=== PATIENT | male | born 1940 | race Caucasian/White ===

== ENCOUNTER 2016-07-06 08:08 | Outpatient (CLI) | payer OTHER | END 2016-07-06 08:09 | disposition home or self-care (01) | DX: I65.21 Occlusion and stenosis of right carotid artery (principal); R51 Headache; M54.2 Cervicalgia; M47.812 Spondylosis without myelopathy or radiculopathy, cervical region; Z98.1 Arthrodesis status ==

== ENCOUNTER 2016-08-27 07:56 | Outpatient (CLI) | payer OTHER | END 2016-08-27 07:57 | disposition home or self-care (01) | DX: I71.4 Abdominal aortic aneurysm, without rupture (principal); F17.200 Nicotine dependence, unspecified, uncomplicated ==

== ENCOUNTER 2017-01-17 08:35 | Outpatient (CLI) | payer OTHER ==
[2017-01-17 18:57] LABS: BASOPHILS # (AUTO) 0.4 10^3/uL (0.0-0.1); BASOPHILS % (AUTO) 5.9 %; EOSINOPHILS # (AUTO) 0.2 10^3/uL (0.0-0.7); HCT - HEMATOCRIT 42.6 % (42.0-52.0); LYMPHOCYTES # (AUTO) 1.4 10^3/uL (1.5-3.5); LYMPHOCYTES % (AUTO) 20.2 %; MEAN CORPUSCULAR HEMOGLOBIN 31.9 pg (27.0-31.0); MEAN CORPUSCULAR VOLUME 96.7 fL (80.0-94.0); MEAN PLATELET VOLUME 7.9 fL (7.4-11.4); MONOCYTES # (AUTO) 0.6 10^3/uL (0.0-1.0); MONOCYTES % (AUTO) 8.5 %; NEUTROPHILS # (AUTO) 4.2 10^3/uL (1.5-6.6); NEUTROPHILS % (AUTO) 62.4 %; NUCLEATED RED BLOOD CELLS AUTO 0.2 /100WBC; RED CELL DISTRIBUTION WIDTH 13.4 % (12.0-15.0); UNCORRECTED WHITE BLOOD COUNT 6.7 x10^3/uL; WHITE BLOOD COUNT 6.7 x10^3/uL (4.8-10.8)
[2017-01-17 19:09] LABS: ALBUMIN/GLOBULIN RATIO 1.4 (1.0-2.2); BUN - BLOOD UREA NITROGEN 18 mg/dL (6-20); CALCIUM 9.1 mg/dL (8.5-10.3); CARBON DIOXIDE - CO2 26 mmol/L (21-32); CHLORIDE 101 mmol/L (101-111); CHOL/HDL RATIO 6.6 (<5.0); CHOLESTEROL 219 mg/dL; CREATININE 1.1 mg/dL (0.6-1.2); GFR - MDRD 65 (>89); GLUCOSE 117 mg/dL (70-100); HDL CHOLESTEROL 33 mg/dL; POTASSIUM 4.2 mmol/L (3.5-5.0); SODIUM 136 mmol/L (135-145); TOTAL PROTEIN 7.3 g/dL (6.7-8.2); TRIGLYCERIDES 731 mg/dL
[2017-01-17 20:40] LABS: LDL CHOLESTEROL,DIRECT 71 mg/dL
[2017-01-19 22:31] LABS: HEMOGLOBIN A1C 0.78 g/dL
== END 2017-01-17 08:36 | disposition home or self-care (01) ==
LOC: LAB.S 08:35
PROVIDERS: ATTEND Physician Assistant
DX: E78.5 Hyperlipidemia, unspecified (principal)
CPT/HCPCS: 36415; 80053; 80061; 83036; 85025

== ENCOUNTER 2017-02-19 07:48 | Outpatient (CLI) | payer OTHER | END 2017-02-19 07:49 | disposition home or self-care (01) | LOC: DI 07:48 | PROVIDERS: ATTEND Physician Assistant | DX: R07.9 Chest pain, unspecified (principal); R06.02 Shortness of breath; R68.84 Jaw pain; F17.200 Nicotine dependence, unspecified, uncomplicated | CPT/HCPCS: 93005; 93306 ==

== ENCOUNTER 2017-09-30 10:41 | Outpatient (CLI) | payer OTHER ==
--- NOTE | 2017-10-01 16:37 | Ultrasound Report ---
LIMITED RETROPERITONEAL ULTRASOUND: 09/30/2017 CLINICAL INDICATION: Followup aneurysm. COMPARISON: 08/27/2016 FINDINGS: The abdominal aorta measures 2.5 cm proximally, and 1.8 cm in the mid portion. Distal aneurysmal dilatation is now seen, measuring 3.9 x 3.9 cm. The iliacs are normal in caliber. No free fluid is present. 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 TD: 09/30/2017 19:37
== END 2017-09-30 10:42 | disposition home or self-care (01) ==
LOC: DI 10:41
PROVIDERS: ATTEND Physician Assistant
DX: I71.4 Abdominal aortic aneurysm, without rupture (principal)
CPT/HCPCS: 76775

== ENCOUNTER 2017-11-17 08:12 | Day surgery (SDC) | payer OTHER ==
[~2017-11-17 08:12] MED LIST: BRIMONIDINE 0.2% OPHTH DROPS 5 ML ONE; BSS/LIDOCAINE/EPINEPHRINE 1 ML SYRINGE ONE; CYCLOPENTOLATE 1% OPHTH DROPS 2 ML ONE; EPINEPHrine 1 MG/ML AMP ONE; KETOROLAC 0.45% OPHTH DROPS ONE; PHENYLEPHRINE 2.5% OPHTH 2 ML DROPS ONE; PROPARACAINE 0.5% OPHTH DROPS 15 ML ONE; TIMOLOL 0.5% OPHTH DROPS ONE; TRIAMCIN/MOXIFLOX OPHTHALMIC 0.6 ML VIAL IO ONE
[2017-11-17] MEDS ORDERED: LACTATED RINGERS 500 ML IV ONE (08:39)
[2017-11-17] MEDS ORDERED: CYCLOPENTOLATE 1% OPHTH DROPS 2 ML RIGHTEYE ONE (08:45)
[2017-11-17] MEDS ORDERED: KETOROLAC 0.45% OPHTH DROPS RIGHTEYE ONE (08:45)
[2017-11-17] MEDS ORDERED: PROPARACAINE 0.5% OPHTH DROPS 15 ML RIGHTEYE ONE ×2 (08:45→09:49)
[2017-11-17] MEDS ORDERED: PHENYLEPHRINE 2.5% OPHTH 2 ML DROPS RIGHTEYE ONE (08:45)
[2017-11-17] MEDS ORDERED: MIDAZOLAM 2 MG/2 ML VIAL IVP ONE (09:40)
[2017-11-17] MEDS ORDERED: VANCOMYCIN OPHTHALMI 8MG/0.8ML 8 MG/0.8 ML SYRINGE IO ONE (09:47)
[2017-11-17] MEDS ORDERED: BSS/LIDOCAINE/EPINEPHRINE 1 ML SYRINGE IO ONE (09:47)
[2017-11-17] MEDS ORDERED: CHONDR SULF/HYALURONATE SYRINGE IO ONE (09:48)
[2017-11-17] MEDS ORDERED: BRIMONIDINE 0.2% OPHTH DROPS 5 ML OPTH ONE (09:48)
[2017-11-17] MEDS ORDERED: EPINEPHrine 1 MG/ML AMP IR ONE (09:48)
[2017-11-17] MEDS ORDERED: TIMOLOL 0.5% OPHTH DROPS OPTH ONE (09:49)
[2017-11-17 10:20] VITALS: BP 134/70
== END 2017-11-17 08:13 | disposition home or self-care (01) ==
LOC: SDS 08:12
PROVIDERS: ATTEND Ophthalmology
PROC: 08RJ3JZ Replacement of Right Lens with Synthetic Substitute, Percutaneous Approach (ICD-10-PCS; principal; 2017-11-17 09:30)
DX: H25.11 Age-related nuclear cataract, right eye (principal); E78.00 Pure hypercholesterolemia, unspecified; F41.9 Anxiety disorder, unspecified; F32.9 Major depressive disorder, single episode, unspecified
CPT/HCPCS: 66984; A9270; J3490; V2632

== ENCOUNTER 2017-12-23 10:35 | Outpatient (CLI) | payer OTHER ==
--- NOTE | 2017-12-23 12:39 | XRAY Report ---
Procedure Date: 12/23/2017 Accession Number: [id number] / [id number] Procedure: XR - Chest 2 View X-Ray CPT Code: 57643 FULL RESULT: EXAM: Chest 2 View X-Ray DATE: 12/23/2017 10:56 AM CLINICAL HISTORY: WHEEZING COMPARISON: 06/25/2015 TECHNIQUE: 2 views. FINDINGS: Lungs/Pleura: No focal opacities evident. No pneumothorax or pleural effusion. Normal volumes. Mediastinum: Heart and mediastinal contours are unremarkable. Other: None. IMPRESSION: Normal 2-view chest radiography. RADIA
== END 2017-12-23 10:36 | disposition home or self-care (01) ==
LOC: DI 10:35
PROVIDERS: ATTEND Physical Medicine & Rehabilitation
DX: R06.2 Wheezing (principal)
CPT/HCPCS: 71046

== ENCOUNTER 2018-01-12 06:34 | Day surgery (SDC) | payer OTHER ==
[2018-01-12] MEDS ORDERED: KETOROLAC 0.45% OPHTH DROPS ONE (06:41)
[2018-01-12] MEDS ORDERED: PHENYLEPHRINE 2.5% OPHTH 2 ML DROPS ONE (06:41)
[2018-01-12] MEDS ORDERED: PROPARACAINE 0.5% OPHTH DROPS 15 ML ONE (06:41)
[2018-01-12] MEDS ORDERED: CYCLOPENTOLATE 1% OPHTH DROPS 2 ML ONE (06:41)
[2018-01-12] MEDS ORDERED: PROPARACAINE 0.5% OPHTH DROPS 15 ML LEFTEYE ONE ×2 (06:45→08:01)
[2018-01-12] MEDS ORDERED: PHENYLEPHRINE 2.5% OPHTH 2 ML DROPS LEFTEYE ONE (06:45)
[2018-01-12] MEDS ORDERED: CYCLOPENTOLATE 1% OPHTH DROPS 2 ML LEFTEYE ONE (06:45)
[2018-01-12] MEDS ORDERED: KETOROLAC 0.45% OPHTH DROPS LEFTEYE ONE (06:45)
[2018-01-12] MEDS ORDERED: LACTATED RINGERS 500 ML IV ONE (07:05)
[2018-01-12] MEDS ORDERED: TIMOLOL 0.5% OPHTH DROPS ONE (07:11)
[2018-01-12] MEDS ORDERED: BSS/LIDOCAINE/EPINEPHRINE 1 ML SYRINGE ONE (07:11)
[2018-01-12] MEDS ORDERED: BRIMONIDINE 0.2% OPHTH DROPS 5 ML ONE (07:11)
[2018-01-12] MEDS ORDERED: EPINEPHrine 1 MG/ML AMP ONE (07:11)
[2018-01-12] MEDS ORDERED: TRIAMCIN/MOXIFLOX OPHTHALMIC 0.6 ML VIAL IO ONE (07:11)
[2018-01-12] MEDS ORDERED: VANCOMYCIN OPHTHALMI 8MG/0.8ML 8 MG/0.8 ML SYRINGE IO ONE ×3 (07:11→07:54)
[2018-01-12] MEDS ORDERED: BRIMONIDINE 0.2% OPHTH DROPS 5 ML OPTH ONE (07:58)
[2018-01-12] MEDS ORDERED: EPINEPHrine 1 MG/ML AMP IR ONE (07:58)
[2018-01-12] MEDS ORDERED: MIDAZOLAM 2 MG/2 ML VIAL IVP ONE (08:00)
[2018-01-12] MEDS ORDERED: BSS/LIDOCAINE/EPINEPHRINE 1 ML SYRINGE IO ONE ×2 (08:00)
[2018-01-12] MEDS ORDERED: CHONDR SULF/HYALURONATE SYRINGE IO ONE (08:00)
[2018-01-12] MEDS ORDERED: TIMOLOL 0.5% OPHTH DROPS OPTH ONE (08:00)
[2018-01-12] MEDS ORDERED: TRIAMCIN/MOXIFLOX/VANCO 1 ML VIAL IO ONE (08:06)
[2018-01-12 08:28] VITALS: BP 143/64
--- NOTE | 2018-01-12 10:55 | OPERATIVE REPORT ---
DATE OF SERVICE: 01/12/2018 Physician: Kali Merino MD PREOPERATIVE DIAGNOSIS: Visually significant cataract, left eye. Cataract surgery was performed on the right eye on 11/17/2017. POSTOPERATIVE DIAGNOSIS: Visually significant cataract, left eye. Cataract surgery was performed on the right eye on 11/17/2017. PROCEDURE PERFORMED: Phacoemulsification and posterior chamber intraocular lens implant, left eye. SURGEON: Kali Merino MD ANESTHESIA: Monitored anesthesia care. COMPLICATIONS: None. INDICATIONS: This is a 77-year-old man with progressive vision loss in the left eye due to 2+ nuclea r sclerotic, trace posterior subcapsular, and vacular cataract. Best corrected visual acuity was 20/ 50 with glare to 20/125 in the left eye. Indications for surgery are overall decrease in vision, dif ficulty seeing words on a computer screen, difficulty reading, difficulty seeing words closed caption or game scores on TV, difficulty seeing street signs, difficulty driving in low light or at night, a nd difficulty driving at night because of headlights from other vehicles. He was consented at length concerning risks and benefits of cataract surgery, after which he expressed a desire to proceed with surgery. OPERATIVE PROCEDURE: The patient was taken into OR #3 and placed under monitored anesthesia care. A surgical timeout was conducted confirming correct patient, correct procedure, and correct surgical s ite. He was given topical anesthesia and prepped and draped in usual sterile fashion. The eye was e ntered at the 6 and 3 o'clock positions. Intracameral Shugarcaine was injected into the anterior jojo mber, followed by Viscoat. A continuous-tear curvilinear capsulorrhexis was performed. The nucleus was hydrodissected and phacoemulsified. The cortex was evacuated using automated infusion and aspira tion. Provisc was injected in the capsular bag, and a 24.5 diopter intraocular lens was inserted int o the bag. Approximately 0.8 mL of a mixture of triamcinolone, moxifloxacin and vancomycin was injec lurdes subconjunctivally in the superior quadrant for infection and inflammation prophylaxis. I and A w as used to evacuate the viscoelastic material. His eye was inflated to physiologic pressure using ba lanced salt solution and found to be watertight. The patient was taken from the operating room in go od condition and given postop instructions. TD: 01/12/2018 08:25
== END 2018-01-12 06:35 | disposition home or self-care (01) ==
LOC: SDS 06:34
PROVIDERS: ATTEND Ophthalmology
PROC: 08RK3JZ Replacement of Left Lens with Synthetic Substitute, Percutaneous Approach (ICD-10-PCS; principal; 2018-01-12 08:00)
DX: H25.812 Combined forms of age-related cataract, left eye (principal); I10 Essential (primary) hypertension; I71.4 Abdominal aortic aneurysm, without rupture; H53.001 Unspecified amblyopia, right eye
CPT/HCPCS: 66984; A9270; J3490; V2632

== ENCOUNTER 2018-08-09 22:17 | Outpatient (CLI) | payer OTHER | END 2018-08-09 22:18 | disposition critical access hospital (66) | LOC: EMS 22:17 | PROVIDERS: ATTEND Surgery | DX: R41.82 Altered mental status, unspecified (principal) | CPT/HCPCS: A0425; A0427 ==

== ENCOUNTER 2018-08-09 22:52 | Observation (INO) | payer OTHER ==
--- NOTE | 2018-08-09 23:01 | ED Physician Documentation ---
PD HPI ALTERED MENTAL STATUS - Stated complaint Stated Complaint: AMS, SOA - Chief complaint Chief Complaint: Neuro - History obtained from History obtained from: Patient, EMS - History of Present Illness Timing - onset: Other (tonight) Quality / character: Confused Associated symptoms: No: Fever, Headache, Stiff neck, Dyspnea, Cough, NVD, Urinary sx, General weakness, Focal weakness, Seizure activity, Syncope Contributing factors: Intoxicated Basline status: Alert and oriented X 3, Ambulatory, Independent Treatment OBSERVER HELPER: Accucheck (132) Similar symptoms before: Has not had sx before Recently seen: Not recently seen - Additional information Additional information: per medic report, neighbors called 911. Patient went to neighbor's house and knocked on their door, insisting someone was passed out in his house. Patient lives alone and neighbors say there was no one in the house. Neighbors noted patient was acting confused, and this is not his baseline (per medic report, as reported to them by the neighbor that was on scene when medics assessed patient). patient tells me he went outside of his house tonight because he felt short of breath. I asked why he knocked on neighbor's door, and he says because he was short of breath. He does not recall thinking or telling anyone that there was someone else in his house on the ground. Review of Systems Constitutional: denies: Fever, Chills, Sweats Eyes: reports: Reviewed and negative Cardiac: reports: Reviewed and negative Respiratory: reports: Dyspnea. denies: Cough, Wheezing GI: reports: Reviewed and negative : denies: Dysuria, Frequency Musculoskeletal: reports: Neck pain (chronic) Neurologic: reports: Confused, Altered mental status. denies: Generalized weakness, Focal weakness, Numbness, Headache, LOC PD PAST MEDICAL HISTORY - Past Medical History Cardiovascular: Hypertension, High cholesterol Respiratory: None Endocrine/Autoimmune: None GI: Colon polyps : None HEENT: Chronic vision loss Psych: Depression, Anxiety Musculoskeletal: Osteoarthritis, Chronic back pain Derm: None - Past Surgical History Past Surgical History: Yes General: Appendectomy, Colonoscopy HEENT: Cataracts, Tonsil/Adenoidectomy - Present Medications Home Medications: Ambulatory Orders Medication Instructions Recorded Confirmed raNITIdine [Zantac] 300 mg PO DAILY 10/29/14 01/11/18 Lovastatin [Altoprev] 20 mg PO DAILY 11/17/17 01/11/18 Trazodone HCl 50 mg PO DAILY 11/17/17 01/11/18 Hydrocodone/Acetaminophen [[place] 1 each PO Q6H PRN 08/10/18 08/10/18 5-325 Tablet] Levothyroxine Sodium [Synthroid] 50 mcg PO DAILY #30 tablet 08/10/18 - Allergies Allergies/Adverse Reactions: Allergies Allergy/AdvReac Type Severity Reaction Status Date / Time No Known Drug Allergies Allergy Verified 10/29/14 21:03 - Social History Does the pt smoke?: Yes Smoking Status: Current every day smoker Does the pt drink ETOH?: Yes Does the pt have substance abuse?: No - Immunizations Immunizations are current?: Yes - POLST Patient has POLST: No PD ED PE NORMAL - Vitals Vital signs reviewed: Yes - General General: No acute distress, Well developed/nourished, Other (awake, alert. knows he is in the emergency department, does not know which one nor what town it is in. states year is 2019. ) - HEENT HEENT: Atraumatic, PERRL, EOMI, Moist mucous membranes - Neck Neck: Supple, no meningeal sign, No bony TTP - Cardiac Cardiac: RRR, No murmur, No gallop, No rub - Respiratory Respiratory: No respiratory distress - Abdomen Abdomen: Soft, Non tender - Extremities Extremities: No edema - Neuro Neuro: pyrometer temperature regulator 2-12 intact, No motor deficit, No sensory deficit, Normal speech Eye Opening: Spontaneous Motor: Obeys Commands Verbal: Confused GCS Score: 14 PD ED PE EXPANDED - Respiratory Respiratory: Wheezing (course wheezing bilaterally) Results - Vitals Vitals: Vital Signs - 24 hr 08/09/18 08/09/18 08/10/18 22:55 23:02 00:23 Temperature 36.2 C L Heart Rate 63 58 L 55 L Respiratory 16 16 15 Rate Blood Pressure 112/65 100/66 O2 Saturation 92 98 08/10/18 08/10/18 01:00 02:59 Temperature Heart Rate 55 L 76 Respiratory 15 21 Rate Blood Pressure 110/70 118/73 O2 Saturation 96 96 Oxygen O2 Source Nasal cannula Oxygen Flow Rate 2 - EKG (time done) No standard instances Rate: Rate (enter#) (63) Rhythm: NSR [place]: Normal Intervals: Normal [place] QRS: Normal Ischemia: Non specific changes (V3, V4) - Labs Labs: Laboratory Tests 08/09/18 08/09/18 08/09/18 23:40 23:40 23:40 WBC 9.6 RBC 4.42 L Hgb 14.0 Hct 41.2 L MCV 93.2 MCH 31.7 H MCHC 34.0 RDW 13.3 Plt Count 247 MPV 7.5 Neut # (Auto) 5.1 Lymph # (Auto) 3.0 [place] # (Auto) 0.8 Eos # (Auto) 0.5 Baso # (Auto) 0.1 Absolute Nucleated RBC 0.00 Nucleated RBC % 0.0 PT 12.7 H INR 1.1 APTT 32.1 Bld Gas Analysis Time Sample Site ABG pH ABG pCO2 ABG pO2 ABG HCO3 ABG Total CO2 ABG O2 Saturation ABG Base Excess James Test Room Air Sodium 135 Potassium 4.3 Chloride 98 L Carbon Dioxide 26 Anion Gap 11.0 BUN 25 H Creatinine 1.2 Estimated GFR (MDRD) 59 L Glucose 129 H Calcium 8.9 Total Bilirubin 0.8 AST 21 ALT 18 Alkaline Phosphatase 75 Ammonia Troponin I B-Natriuretic Peptide Total Protein 7.2 Albumin 4.1 Globulin 3.1 Albumin/Globulin Ratio 1.3 Lipase 337 H TSH Urine Color Urine Clarity Urine pH Ur Specific Allison Urine Protein Urine Glucose (UA) Urine Ketones Urine Occult Blood Urine Nitrite Urine Bilirubin Urine Urobilinogen Ur Leukocyte Esterase Ur Microscopic Review Urine Culture Comments Urine Opiates Screen Ur Oxycodone Screen Urine Methadone Screen Ur Propoxyphene Screen Ur Barbiturates Screen Ur Tricyclics Screen Ur Phencyclidine Scrn Ur Amphetamine Screen U Methamphetamines Scrn U Benzodiazepines Scrn Urine Cocaine Screen U Cannabinoids Screen Ethyl Alcohol 165.2 08/09/18 08/09/18 08/09/18 23:40 23:40 23:40 WBC RBC Hgb Hct MCV MCH MCHC RDW Plt Count MPV Neut # (Auto) Lymph # (Auto) [place] # (Auto) Eos # (Auto) Baso # (Auto) Absolute Nucleated RBC Nucleated RBC % PT INR APTT Bld Gas Analysis Time Sample Site ABG pH ABG pCO2 ABG pO2 ABG HCO3 ABG Total CO2 ABG O2 Saturation ABG Base Excess James Test Room Air Sodium Potassium Chloride Carbon Dioxide Anion Gap BUN Creatinine Estimated GFR (MDRD) Glucose Calcium Total Bilirubin AST ALT Alkaline Phosphatase Ammonia Troponin I < 0.04 B-Natriuretic Peptide 72 Total Protein Albumin Globulin Albumin/Globulin Ratio Lipase TSH 8.20 H Urine Color Urine Clarity Urine pH Ur Specific Allison Urine Protein Urine Glucose (UA) Urine Ketones Urine Occult Blood Urine Nitrite Urine Bilirubin Urine Urobilinogen Ur Leukocyte Esterase Ur Microscopic Review Urine Culture Comments Urine Opiates Screen Ur Oxycodone Screen Urine Methadone Screen Ur Propoxyphene Screen Ur Barbiturates Screen Ur Tricyclics Screen Ur Phencyclidine Scrn Ur Amphetamine Screen U Methamphetamines Scrn U Benzodiazepines Scrn Urine Cocaine Screen U Cannabinoids Screen Ethyl Alcohol 08/10/18 08/10/18 08/10/18 02:10 03:20 03:30 WBC RBC Hgb Hct MCV MCH MCHC RDW Plt Count MPV Neut # (Auto) Lymph # (Auto) [place] # (Auto) Eos # (Auto) Baso # (Auto) Absolute Nucleated RBC Nucleated RBC % PT INR APTT Bld Gas Analysis Time 0338 Sample Site LEFT RADIAL ABG pH 7.37 ABG pCO2 42 ABG pO2 75 L ABG HCO3 23.3 ABG Total CO2 24.6 ABG O2 Saturation 95 ABG Base Excess -2.0 James Test POSITIVE Room Air YES Sodium Potassium Chloride Carbon Dioxide Anion Gap BUN Creatinine Estimated GFR (MDRD) Glucose Calcium Total Bilirubin AST ALT Alkaline Phosphatase Ammonia 30.9 Troponin I B-Natriuretic Peptide Total Protein Albumin Globulin Albumin/Globulin Ratio Lipase TSH Urine Color YELLOW Urine Clarity CLEAR Urine pH 5.5 Ur Specific Allison 1.010 Urine Protein NEGATIVE Urine Glucose (UA) NEGATIVE Urine Ketones NEGATIVE Urine Occult Blood NEGATIVE Urine Nitrite NEGATIVE Urine Bilirubin NEGATIVE Urine Urobilinogen 0.2 (NORMAL) Ur Leukocyte Esterase NEGATIVE Ur Microscopic Review NOT INDICATED Urine Culture Comments NOT INDICATED Urine Opiates Screen POSITIVE H Ur Oxycodone Screen NEGATIVE Urine Methadone Screen NEGATIVE Ur Propoxyphene Screen NEGATIVE Ur Barbiturates Screen NEGATIVE Ur Tricyclics Screen NEGATIVE Ur Phencyclidine Scrn NEGATIVE Ur Amphetamine Screen NEGATIVE U Methamphetamines Scrn NEGATIVE U Benzodiazepines Scrn NEGATIVE Urine Cocaine Screen NEGATIVE U Cannabinoids Screen NEGATIVE Ethyl Alcohol - Rads (name of study) CT head Radiology: Prelim report reviewed, See rad report chest xray Radiology: Prelim report reviewed, See rad report PD MEDICAL DECISION MAKING - ED course Complexity details: reviewed results, re-evaluated patient, considered differential, d/w patient ED course: Patient continued to exhibit mild confusion during ED stay and thus plan is to admit for further observation and w/u for altered mental status Departure - Departure Disposition: ED Place in Observation Clinical Impression: Altered mental status Condition: Stable Discharge Date/Time: 08/10/18 05:18
--- NOTE | 2018-08-09 23:49 | CT Report ---
Reason: AMS Procedure Date: 08/09/2018 Accession Number: [id number] / [id number] Procedure: CT - HEAD WO CPT Code: FULL RESULT: EXAM: CT HEAD WITHOUT CONTRAST. EXAM DATE: 08/09/2018 11:34 PM. CLINICAL HISTORY: Altered mental status. COMPARISON: Brain angiogram without 07/06/2016 9:00 AM, brain without 07/06/2016 9:00 AM. TECHNIQUE: Multiaxial CT images were obtained from the foramen magnum to the vertex. Reformats: Sagittal and coronal. IV contrast: None. In accordance with CT protocol optimization, one or more of the following dose reduction techniques were utilized for this exam: automated exposure control, adjustment of mA and/or KV based on patient size, or use of iterative reconstructive technique. FINDINGS: Parenchyma: No intraparenchymal hemorrhage. No evidence of mass, midline shift or CT findings of acute infarction. Al-white differentiation is distinct. Diffuse mild to moderate chronic microangiopathic white matter changes are evident. Extraaxial Spaces: Normal for age. No subdural or epidural collections identified. Ventricles: The ventricles and cortical sulci are enlarged, consistent with age-related tissue loss. Sinuses: Imaged paranasal sinuses, orbits, and mastoids show no significant abnormality. Bones: No evidence of fracture or calvarial defect. Other: None. IMPRESSION: Mild to moderate senescent changes without evidence of acute intracranial abnormality. RADIA
--- NOTE | 2018-08-09 23:52 | XRAY Report ---
Reason: dyspnea, AMS Procedure Date: 08/09/2018 Accession Number: [id number] / [id number] Procedure: XR - Chest 2 View X-Ray CPT Code: 43337 FULL RESULT: EXAM: CHEST RADIOGRAPHY EXAM DATE: 08/09/2018 11:37 PM. CLINICAL HISTORY: Dyspnea, AMS. COMPARISON: CHEST 2 VIEW 12/23/2017 10:46 AM. TECHNIQUE: 2 views. FINDINGS: Lungs/Pleura: Mild diffuse hazy opacification of the lungs, new compared to prior, could represent mild interstitial pulmonary edema. No pleural effusion or pneumothorax. Mediastinum: Heart and mediastinal contours are unremarkable. IMPRESSION: Mild diffuse hazy opacification of the lungs, new compared to prior, could represent mild interstitial pulmonary edema. RADIA
[2018-08-09 23:53] LABS: BASOPHILS # (AUTO) 0.1 10^3/uL (0.0-0.1); BASOPHILS % (AUTO) 0.8 %; EOSINOPHILS # (AUTO) 0.5 10^3/uL (0.0-0.7); EOSINOPHILS % (AUTO) 5.7 %; MEAN CORPUSCULAR HEMOGLOBIN 31.7 pg (27.0-31.0); MEAN CORPUSCULAR VOLUME 93.2 fL (80.0-94.0); MEAN PLATELET VOLUME 7.5 fL (7.4-11.4); MONOCYTES # (AUTO) 0.8 10^3/uL (0.0-1.0); MONOCYTES % (AUTO) 8.7 %; NEUTROPHILS # (AUTO) 5.1 10^3/uL (1.5-6.6); NEUTROPHILS % (AUTO) 53.8 %; PLT - PLATELET COUNT 247 10^3/uL (130-450); RED BLOOD COUNT 4.42 10^6/uL (4.70-6.10); RED CELL DISTRIBUTION WIDTH 13.3 % (12.0-15.0); WHITE BLOOD COUNT 9.6 x10^3/uL (4.8-10.8)
[2018-08-10 00:01] LABS: INR 1.1 (0.8-1.2); PT - PROTHROMBIN TIME 12.7 secs (9.9-12.6)
[2018-08-10 00:08] LABS: PARTIAL THROMBOPLASTIN TIME 32.1 secs (24.9-33.3)
[2018-08-10 00:13] LABS: ALBUMIN 4.1 g/dL (3.2-5.5); ALBUMIN/GLOBULIN RATIO 1.3 (1.0-2.2); BILIRUBIN,TOTAL 0.8 mg/dL (0.2-1.0); CALCIUM 8.9 mg/dL (8.5-10.3); CREATININE 1.2 mg/dL (0.6-1.2); TOTAL PROTEIN 7.2 g/dL (6.7-8.2)
[2018-08-10] MEDS ORDERED: IPRATROPIUM/ALBUTEROL 3 ML NEB INH STA (00:14)
[2018-08-10] MEDS ORDERED: SODIUM CHLORIDE 0.9% 500 ML IV STA (00:14)
[2018-08-10 02:29] LABS: MUDS CUTOFF CONCENTRATIONS CUTOFF CONC BELOW:
[2018-08-10 02:32] LABS: BILIRUBIN,URINE NEGATIVE (NEGATIVE); GLUCOSE, URINE (UA) NEGATIVE (NEGATIVE); KETONES,URINE (UA) NEGATIVE (NEGATIVE); LEUKOCYTE ESTERASE, URINE NEGATIVE (NEGATIVE); NITRITE,URINE NEGATIVE (NEGATIVE); OCCULT BLOOD,URINE NEGATIVE (NEGATIVE); PH,URINE 5.5 PH (5.0-7.5); PROTEIN,URINE NEGATIVE (NEGATIVE); UROBILINOGEN,URINE 0.2 (NORMAL) E.U./dL (NORMAL)
[2018-08-10 02:33] LABS: CLARITY,URINE CLEAR (CLEAR)
[2018-08-10 02:44] LABS: AMPHETAMINE SCREEN,URINE NEGATIVE (NEGATIVE); BENZODIAZEPINES SCREEN, URINE NEGATIVE (NEGATIVE); COCAINE SCREEN URINE NEGATIVE (NEGATIVE); METHADONE SCREEN, URINE NEGATIVE (NEGATIVE); METHAMPHETAMINES SCREEN, URINE NEGATIVE (NEGATIVE); OPIATE SCREEN, URINE POSITIVE (NEGATIVE); OXYCODONE SCREEN, URINE NEGATIVE (NEGATIVE); PROPOXYPHENE SCREEN, URINE NEGATIVE (NEGATIVE); TRICYCLIC ANTIDEPRESSANT,URINE NEGATIVE (NEGATIVE)
[2018-08-10 03:39] LABS: ABG HCO3 23.3 mmol/L (22.0-26.0); ABG OXYGEN SATURATION 95 % (94-98); ABG PCO2 42 mmHg (34-45); ABG PH 7.37 (7.35-7.45); ABG PO2 75 mmHg (80-100); ABG TCO2 24.6 MMOL/L (21.0-29.0); ALLEN TEST POSITIVE
[2018-08-10] MEDS ORDERED: SODIUM CHLORIDE FLUSH 0.9% 10 ML SYRINGE IVP PRN (04:55)
[2018-08-10] MEDS ORDERED: LORazepam 0.5 MG TABLET PO PRN (05:10)
[2018-08-10 05:26] VITALS: BP 158/76
--- NOTE | 2018-08-10 06:16 | HISTORY & PHYSICAL EXAMINATION ---
Chief Complaint - Chief Complaint Chief Complaint: altered mental status History of Present Illness - Admitted From Admitted From:: [facility] - History Obtained From Records Reviewed: yes History obtained from: patient, EMS and ED staff - History of Present Illness HPI Comment/Other: Patient seen on 08/10/18 at 4 am Patient is a 77 y/o male who was brought into the ED via EMS for altered mental status. He lives alone and overnight he went knocking on his neighbors door initially saying he could not breath. Then he stated that there was somebody passed out on his living room floor. His neighbor was concerned because he was not acting like is normal self so EMS was called and he was brought to the ED. At bedside the patient is very awake and alert. He knows he is in the hospital and told me it was 08/11/18 (understandably, since it is heeler machine of 08/10/18). He is able to give me his medical history however in the course of the interaction, there were just a few observations that didn't add up. It took him a while to remember that [place] was the president. He could remember watching a congressional hearing on news on 08/09/18 but the specifics; like who was being interviewed and what was it about were not very clear from his account. It was reported that he was observed by ED staff to attempt wearing his hat by putting it on his foot. His work up in the ED was largely unremarkable except he was found to have alco hol in blood test and opiates on toxicology. He admits to having a drink earlier in the day and taking prescribed opiates. He denies chest pain, RADU, abd pain, nausea, vomiting, diarrhea, fever or chi lls. He has no focal neurologic deficits. He has contracture of his fingers. As a result they are constantly flexed into a fist. As a result of confusion he is being admitted for further monitoring and possibly imaging. History - Past Medical History Cardiovascular: reports: Hypertension, High cholesterol Respiratory: reports: None Endocrine/Autoimmune: reports: None GI: reports: Colon polyps : reports: None HEENT: reports: Chronic vision loss Psych: reports: Depression, Anxiety Musculoskeletal: reports: Osteoarthritis, Chronic back pain Derm: reports: None MRSA Hx?: No - Past Surgical History General: reports: Appendectomy, Colonoscopy HEENT: reports: Cataracts, Tonsil/Adenoidectomy - POLST Patient has POLST: No Meds/Allgy - Home Medications Home Medications: Ambulatory Orders Medication Instructions Recorded Confirmed raNITIdine [Zantac] 300 mg PO DAILY 10/29/14 01/11/18 Hydrocodone/Acetaminophen [[place] 1 each PO TID PRN #30 tablet 10/30/14 01/11/18 5-325 Tablet] Lovastatin [Altoprev] 20 mg PO DAILY 11/17/17 01/11/18 Trazodone HCl 50 mg PO DAILY 11/17/17 01/11/18 - Allergies Allergies/Adverse Reactions: Allergies Allergy/AdvReac Type Severity Reaction Status Date / Time No Known Drug Allergies Allergy Verified 10/29/14 21:03 Review of Systems - Constitutional Constitutional: denies: Fever, Chills, Malaise - Eyes Eyes: denies: Irritation, Amaurosis, Blurred vision, Dipolpia - Ears, Nose & Throat Ears, Nose & Throat: denies: Vertigo, Sore throat - Cardiovascular Cariovascular: denies: Irregular heart rate, Palpitations, Chest pain, Edema, Lightheadedness, Syncope - Respiratory Respiratory: denies: Cough, Wheezing, SOB at rest, SOB with exertion - Gastrointestinal Gastrointestinal: denies: Abdominal pain, Abdominal distention, Constipation, Diarrhea, Nausea, Vomiting - Genitourinary Genitourinary: denies: Frequency, Urgency, Hematuria - Musculoskeletal Musculoskeletal: denies: Muscle pain, Joint pain - Integumentary Integumentary: denies: Rash, Pruritis, Lesions, Dryness - Neurological Neurological: denies: General weakness, Focal weakness, Headache, Dizziness, Numbness, Incoordination, Slurred speech - Psychiatric Psychiatric: denies: Depression, Anxiety - Endocrine Endocrine: denies: Polyuria, Polydypsia - Hematologic/Lymphatic Hematologic/Lymphatic: denies: Anemia, Bruising, Petechiae Prior Level of Functionality: Patient lives alone and is normally independent of activities of daily living Exam - Vital Signs Reviewed Vital Signs: Yes Vital Signs: Vital Signs x48h Temp Pulse Pulse Resp BP BP Pulse Ox 08/10/18 05:25 36.9 C 76 16 158/76 H 94 08/10/18 02:59 76 21 118/73 96 08/10/18 01:00 55 L 15 110/70 96 08/10/18 00:23 55 L 15 08/09/18 23:02 58 L 16 100/66 98 08/09/18 22:55 36.2 C L 63 16 112/65 92 - Physical Exam General Appearance: positive: No acute distress, Alert Eyes Bilateral: positive: Normal inspection, PERRL, EOMI, Conjunctivae nml, No scleral icterus ENT: positive: ENT inspection nml, No signs of dehydration Neck: positive: Nml inspection, No JVD, Trachea midline Respiratory: positive: Chest non-tender, No respiratory distress, Breath sounds nml. negative: Wheezes, Rales, Rhonchi Cardiovascular: positive: Regular rate & rhythm. negative: No murmur, No gallop Abdomen: positive: Non-tender, Nml bowel sounds, No distention. negative: Guarding, Rebound Back: positive: Nml inspection Skin: positive: Color nml, No rash, Warm, Dry Extremities: positive: Non-tender, Full ROM, Nml appearance, No pedal edema Neurologic/Psychiatric: positive: Oriented x3, CN's nml (2-12). negative: Weakness, Sensory loss, Facial droop, Slurred/abnml speech, Depressed mood /affect Conclusion/Plan - Problem List (1) Encephalopathy Conclusion/Plan: Will observe patient for any changes in clinical condition MRI of brain w/contrast ordered (2) Hyperlipidemia Conclusion/Plan: On lovastatin Qualifiers: Hyperlipidemia type: unspecified Qualified Code(s): E78.5 - Hyperlipidemia, unspecified (3) GERD (gastroesophageal reflux disease) Conclusion/Plan: On ranitizine (4) Insomnia Conclusion/Plan: On trazodone at home - Lab Results Fish Bones: 08/09/18 23:40 08/09/18 23:40 Core Measures - Anticipated LOS I expect patient to be DC'd or transferred within 96 hours.: Yes - DVT/VTE - Prophylaxis VTE/DVT Device ordered at admit?: Yes - AMI - Statin at Admit Aspirin Prescribed on Admit: Yes
--- NOTE | 2018-08-10 08:25 | Discharge Plan ---
Discharge Plan Disposition: Home, Self Care Condition: Stable Prescriptions: Levothyroxine Sodium [Synthroid] 50 mcg PO DAILY #30 tablet Diet: Regular Activity Restrictions: Activity as Tolerated Instruction Topics: ED Hypothyroidism Additional Instructions or Follow Up instructions: You were here to evaluate confusion. The CT scan of your head did not find a stroke. Drinking alcohol can add to your confusion. Please stop drinking alcohol. Your blood tests showed that your thyroid level is low. A new prescription for thyroid replacement has been ordered and sent to your pharmacy. Please see your PCP in several days for follow-up of this hospital stay. No Smoking: If you smoke, Please STOP! Call for help. Follow-up with: Amelia Torrez PA [Primary Care Provider] -
[2018-08-10] MEDS ORDERED: POLYETHYLENE GLYCOL 3350 17 GM PACKET PO SCH (09:00)
[2018-08-10] MEDS ORDERED: SODIUM CHLORIDE FLUSH 0.9% 10 ML SYRINGE IVP SCH (09:00)
[2018-08-10] MEDS ORDERED: NICOTINE 14 MG PATCH TOP SCH (09:00)
--- NOTE | 2018-08-11 02:05 | DISCHARGE SUMMARY ---
Discharge Summary Admit Date: 08/10/18 Discharge Date: 08/10/18 Discharging Provider: Dang Black Code Status: Attempt Resuscitation Condition at Discharge: Stable Discharge Disposition: 01 Home, Self Care - DIAGNOSES Admission Diagnoses: Encephalopathy Hyperlipidemia GERD Insomnia Discharge Diagnoses with Status of Each Condition: Encephalopathy. Mentation currently at baseline Hyperlipidemia. stable chronic GERD. stable chronic Insomnia. stable chronic Hypothyroidism (new diagnosis) stable. On synthroid - HPI History of Present Illness: Patient is a 77 y/o male who was brought into the ED via EMS for altered mental status. He lives alone and overnight he went knocking on his neighbors door initially saying he could not breath. Then he stated that there was somebody passed out on his living room floor. His neighbor was concerned because he was not acting like is normal self so EMS was called and he was brought to the ED. At bedside the patient is very awake and alert. 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 He is able to give me his medical history however in the course of the interaction, there were just a few observations that didn't add up. It took him a while to remember that [place] Sanches was the president. He could remember watching a congressional hearing on news on 08/09/18 but the specifics; like who was being interviewed and what was it about were not very clear from his account. It was reported that he was observed by ED staff to attempt wearing his hat by putting it on his foot. His work up in the ED was largely unremarkable except he was found to have alcohol in blood test and opiates on toxicology. He admits to having a drink earlier in the day and taking prescribed opiates. He denies chest pain, RADU, abd pain, nausea, vomiting, diarrhea, fever or chills. He has no focal neurologic deficits. He has contracture of his fingers. As a result they are constantly flexed into a fist. As a result of confusion he is being admitted for further monitoring and possibly imaging. - HOSPITAL COURSE Hospital Course: Patient was admitted to the floors where he stayed for a total of 4 hours before discharge. The whole time he was in the hospital, he had been insisting to go home. He did not understand why he was in the hospital He was irritable but could be reasoned with, He grudgingly agreed to stay for and MRI of the brain however, when he was informed that the test would not happen until 11 am as opposed to 8-9 am, he became more insistent on leaving. At that point he could not be appeased. All along the patient had been mostly coherent except for what seemed like gaps in his history. However he pointed out that when he drinks he does not seem to r emember things sometomes Social work was asked to assess him for safety to discharge. It was deemed safe to discharge him. So he was discharged home without any further work up or intervention. - ALLERGIES Allergies/Adverse Reactions: Allergies Allergy/AdvReac Type Severity Reaction Status Date / Time No Known Drug Allergies Allergy Verified 10/29/14 21:03 - MEDICATIONS Home Medications: Ambulatory Orders Medication Instructions Recorded Confirmed raNITIdine [Zantac] 300 mg PO DAILY 10/29/14 01/11/18 Lovastatin [Altoprev] 20 mg PO DAILY 11/17/17 01/11/18 Trazodone HCl 50 mg PO DAILY 11/17/17 01/11/18 Hydrocodone/Acetaminophen [[place] 1 each PO Q6H PRN 08/10/18 08/10/18 5-325 Tablet] Levothyroxine Sodium [Synthroid] 50 mcg PO DAILY #30 tablet 08/10/18 - PHYSICAL EXAM AT DISCHARGE General Appearance: positive: No acute distress, Alert, Other (Upset/irritated) Eyes Bilateral: positive: Normal inspection, PERRL, EOMI, No scleral icterus ENT: positive: No signs of dehydration Neck: positive: No JVD, Trachea midline Respiratory: positive: Chest non-tender, No respiratory distress. negative: Wheezes, Rales, Rhonchi Cardiovascular: positive: Regular rate & rhythm Abdomen: positive: Non-tender, No distention. negative: Guarding, Rebound Back: positive: Nml inspection Skin: positive: Color nml, No rash, Warm Extremities: positive: Non-tender, Full ROM, Nml appearance, No pedal edema Neurologic/Psychiatric: positive: Oriented x3 - LABS Result Diagrams: 08/09/18 23:40 08/09/18 23:40 - FOLLOW UP Follow Up: Follow up with PCP with 7 days. Patient was started on synthroid for Hypothyroidism during this hospital stay - TIME SPENT Time Spent in Discharge (Minutes): 45
== END 2018-08-10 08:39 | disposition home or self-care (01) ==
LOC: EDUNIT# → ED 22:52 → MS2 08-10 04:56
PROVIDERS: ADMIT Internal Medicine; ATTEND Internal Medicine
DX: G93.40 Encephalopathy, unspecified (principal); E78.5 Hyperlipidemia, unspecified; K21.9 Gastro-esophageal reflux disease without esophagitis; F51.04 Psychophysiologic insomnia; E03.9 Hypothyroidism, unspecified; I10 Essential (primary) hypertension; F32.9 Major depressive disorder, single episode, unspecified; F41.9 Anxiety disorder, unspecified; F17.210 Nicotine dependence, cigarettes, uncomplicated
CPT/HCPCS: 36415; 36600; 70450; 71046; 80053; 80306; 80320; 81003; 82140; 82803; 83690; 83880; 84443; 84484; 85025; 85610; 85730; 93005; 94640; 94664; 96360; 99284; A9270; G0378; 81001; 87086; 99285

== ENCOUNTER 2020-02-02 08:30 | Outpatient (CLI) | payer OTHER ==
--- NOTE | 2020-02-02 11:05 | Ultrasound Report ---
PROCEDURE: Carotid Doppler Complete INDICATIONS: ABDOMINAL AORTIC ANEURYSM,CAROTID ARTERY STENOSIS TECHNIQUE: Color and pulse Doppler interrogation was performed of both carotid systems, with image documentation and velocity measurements. COMPARISON: Correlation is made with prior brain MR angiogram 07/06/2016 FINDINGS: Right side: Common carotid artery peak systolic velocity: 89 cm/sec. Internal carotid artery: Occluded External carotid artery peak systolic velocity: 112 cm/sec. ICA/CCA peak systolic ratio: Not applicable. 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 Vertebral artery: Flow direction is antegrade. Left side: Common carotid artery peak systolic velocity: 82 cm/sec. Internal carotid artery peak systolic velocity: 116 cm/sec. Internal carotid artery end diastolic velocity: 35 cm/sec. External carotid artery peak systolic velocity: 71 cm/sec. ICA/CCA peak systolic ratio: 0.9 Al scale imaging description: Moderate atherosclerotic changes are seen. Percent internal carotid artery stenosis: Less than 50% by velocity criteria. Vertebral artery: Flow direction is antegrade. 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 Less than 50% stenosis by velocity criteria within the left internal carotid artery. The estimate of stenosis included in the report of the imaging study was calculated using the NASCET method Reviewed by: Rusty Ewing MD on 02/02/2020 10:04 AM DANIELLE Approved by: Rusty Ewing MD on 02/02/2020 10:04 AM DANIELLE Station ID: [id number]
--- NOTE | 2020-02-02 11:08 | Ultrasound Report ---
PROCEDURE: Retroperitoneal Limited INDICATIONS: ABDOMINAL AORTIC ANEURYSM,CAROTID ARTERY STENOSIS TECHNIQUE: Real-time scanning was performed of the aorta and iliac arteries, with image documentation. COMPARISON: None. FINDINGS: Correlation is made with prior ultrasound examinations 09/30/2017 and 08/27/2016 and 015. Correlation is also made with CT 10/29/2014. The aorta measures 2.7 x 1.9 cm proximally and 1.8 x 1.8 cm within its midportion. Within the distal abdominal aorta, there is a known aneurysm seen, which measures 3.8 x 3.7 cm in gre atest axial dimension, with a cranial caudal extent of 6.3 cm. The right common iliac artery measures 1.2 x 1 cm and the left common iliac artery measures 1.1 x 1.1 cm. Atherosclerotic plaque can be seen throughout. 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 Reviewed by: Rusty Ewing MD on 02/02/2020 10:07 AM DANIELLE Approved by: Rusty Ewing MD on 02/02/2020 10:07 AM DANIELLE Station ID: [id number]
== END 2020-02-02 08:31 | disposition home or self-care (01) ==
LOC: DI 08:30
PROVIDERS: ATTEND Registered Nurse
DX: I71.4 Abdominal aortic aneurysm, without rupture (principal); I65.21 Occlusion and stenosis of right carotid artery
CPT/HCPCS: 76775; 93880

== ENCOUNTER 2020-02-21 10:50 | Outpatient (CLI) | payer OTHER ==
[2020-02-21 16:05] LABS: THYROID STIMULATING HORMONE 2.24 uIU/mL (0.34-5.60)
[2020-02-21 16:15] LABS: FOLATE 6.62 ng/mL (5.90 - >24.8)
== END 2020-02-21 10:51 | disposition home or self-care (01) ==
LOC: LAB.S 10:50
PROVIDERS: ATTEND Registered Nurse
DX: R41.89 Other symptoms and signs involving cognitive functions and awareness (principal)
CPT/HCPCS: 36415; 82607; 82746; 84443

== ENCOUNTER 2020-10-16 17:13 | Emergency (ER) | payer OTHER ==
--- NOTE | 2020-10-16 18:01 | ED Physician Documentation ---
PD HPI SYNCOPE - Stated complaint Stated Complaint: FAINTING - Chief complaint Chief Complaint: Neuro - History obtained from History obtained from: Patient - Additional information Additional information: 79-year-old gentleman with history of diabetes, spinal cord injury from a neck surgery, smoking, known abdominal AAA presents with recurrent syncopal and near syncopal episodes. He states for the last 4 years he gets maybe once a week sensation of flushing and he gets dizzy. It lasts for minutes at a time. It is followed by shortness of breath. He had the worst episode he ever had this mor ladi caused him to fall and hit his head and his butt. He has been having headaches along with this, but not concurrently and does not have a headache now. He has no current abdominal or flank pain to suggest AAA rupture. Review of Systems Ten Systems: 10 systems reviewed and negative Nose: reports: Reviewed and negative Throat: reports: Reviewed and negative Cardiac: reports: Reviewed and negative Respiratory: reports: Reviewed and negative PD PAST MEDICAL HISTORY - Past Medical History Cardiovascular: Hypertension, High cholesterol Respiratory: None Endocrine/Autoimmune: None GI: Colon polyps : None HEENT: Chronic vision loss Psych: Depression, Anxiety Musculoskeletal: Osteoarthritis, Chronic back pain Derm: None - Past Surgical History Past Surgical History: Yes General: Appendectomy, Colonoscopy HEENT: Cataracts, Tonsil/Adenoidectomy - Present Medications Home Medications: Ambulatory Orders Medication Instructions Recorded Confirmed Hydrocodone/Acetaminophen [[place] 1 each PO Q6H PRN 08/10/18 08/10/18 5-325 Tablet] Levothyroxine Sodium [Synthroid] 50 mcg PO DAILY #30 tablet 08/10/18 - Allergies Allergies/Adverse Reactions: Allergies Allergy/AdvReac Type Severity Reaction Status Date / Time No Known Drug Allergies Allergy Verified 10/16/20 17:16 - Social History Does the pt smoke?: Yes Smoking Status: Current every day smoker Does the pt drink ETOH?: Yes Does the pt have substance abuse?: No - Immunizations Immunizations are current?: Yes - POLST Patient has POLST: No PD ED PE NORMAL - Vitals Vital signs reviewed: Yes - General General: Alert and oriented X 3, No acute distress - HEENT HEENT: PERRL, EOMI - Neck Neck: Supple, no meningeal sign, No bony TTP - Cardiac Cardiac: RRR, No murmur - Respiratory Respiratory: No respiratory distress, Clear bilaterally - Abdomen Abdomen: Non tender - Back Back: No CVA TTP, No spinal TTP - Derm Derm: Normal color, Warm and dry - Extremities Extremities: Other (His hands are held in flexion with atrophy of the musculature there from prior spinal cord injury.) - Neuro Neuro: Alert and oriented X 3, Normal speech Results - Vitals Vitals: Vital Signs - 24 hr 10/16/20 10/16/20 10/16/20 17:16 18:51 19:50 Temperature 36.5 C 36.7 C Heart Rate 56 L 54 L 88 Respiratory 16 15 18 Rate Blood Pressure 180/73 H 178/75 H 154/84 H O2 Saturation 96 97 100 Oxygen O2 Source Room air - EKG (time done) 1836 Rate: Rate (enter#) (52) Rhythm: NSR (With frequent PACs) [place]iles: LAD Intervals: Normal IA QRS: Normal Ischemia: Non specific changes. No: ST elevation c/w ischemia, ST depression - Labs Labs: Laboratory Tests 10/16/20 10/16/20 10/16/20 18:30 18:30 18:30 WBC 9.6 RBC 4.63 L Hgb 14.0 Hct 44.0 MCV 95.0 H MCH 30.2 MCHC 31.8 L RDW 13.9 Plt Count 241 MPV 9.5 Neut # (Auto) 5.3 Lymph # (Auto) 2.9 Grant # (Auto) 0.9 Eos # (Auto) 0.4 Baso # (Auto) 0.1 Absolute Nucleated RBC 0.00 Nucleated RBC % 0.0 Sodium 135 Potassium 4.7 Chloride 99 L Carbon Dioxide 29 Anion Gap 7.0 BUN 25 H Creatinine 1.0 Estimated GFR (MDRD) 72 L Glucose 109 H Calcium 9.1 Total Bilirubin 0.8 AST 20 ALT 15 Alkaline Phosphatase 74 Troponin I High Sens 4.9 Total Protein 7.4 Albumin 4.4 Globulin 3.0 Albumin/Globulin Ratio 1.5 Lipase 48 PD MEDICAL DECISION MAKING - ED course ED course: 79-year-old with Subacute presyncope, worst episode today. No clear cause on work-up. Does have some supraventricular ectopy, but it was asymptomatic and relatively nonconcerning during observation on the monitor here. Advise close follow-up with both primary care and his neck surgeon but he already knew that there had been a screw failure. AAA has grown, and continued close monitoring is advised but no evidence of rupture clinically or on imaging. Departure - Departure Disposition: 01 Home, Self Care Clinical Impression: Syncope Qualifiers: Syncope type: unspecified Qualified Code(s): R55 - Syncope and collapse AAA (abdominal aortic aneurysm) Qualifiers: Presence of rupture: without rupture Qualified Code(s): I71.4 - Abdominal aortic aneurysm, without rupture Condition: Good Record reviewed to determine appropriate education?: Yes Instructions: ED Fainting Unkn Cause, ED Aneurysm Abdominal Aortic Stable Comments: No specific cause was found for your dizzy episodes tonight, CAT scan of your head was normal. That said that does not preclude you from needing the MRI that your doctor is scheduling. Your chest x-ray is normal, but they did note potential problem with some of your cervical spine screws. You should follow-up with your spine surgeon for evaluation of this. Return for new or worsening symp toms. When you follow-up with your primary care physician, also consider asking for a Holter monitor, a device you would wear around for a while to look for abnormal heartbeats that happen only occasionally. Your AAA now measures 4.3 cm in maximum diameter. Continue to monitor since it does seem to be slowly growing with 6-month ultrasounds. At the current rate you will likely need it repaired within the next couple of years. Discharge Date/Time: 10/16/20 20:02
--- NOTE | 2020-10-16 18:06 | XRAY Report ---
PROCEDURE: Chest 1 View X-Ray INDICATIONS: Chest Pain TECHNIQUE: One view of the chest was acquired. COMPARISON: 08/09/2018 FINDINGS: Surgical changes and devices: Lower cervical fusion hardware. Possible fracture within the left lower cervical screw. Lungs and pleura: No pleural effusions or pneumothorax. Lungs are clear. Mediastinum: Mediastinal contours appear normal. Heart size is normal. Bones and chest wall: No suspicious bony lesions. Overlying soft tissues appear unremarkable. IMPRESSION: 1. No acute process. 2. Possibly fractured left lower cervical fusion screw. Cervical spine plain films could be performed for further assessment, if clinically indicated. Reviewed by: Risa Candelaria MD on 10/16/2020 6:04 PM PDT Approved by: Risa Candelaria MD on 10/16/2020 6:04 PM PDT Station ID: [id number]
[2020-10-16 18:40] LABS: BASOPHILS # (AUTO) 0.1 10^3/uL (0.0-0.1); BASOPHILS % (AUTO) 0.8 %; EOSINOPHILS # (AUTO) 0.4 10^3/uL (0.0-0.7); EOSINOPHILS % (AUTO) 4.3 %; LYMPHOCYTES # (AUTO) 2.9 10^3/uL (1.5-3.5); MEAN CORPUSCULAR HEMOGLOBIN 30.2 pg (27.0-31.0); MEAN CORPUSCULAR HGB CONC 31.8 g/dL (32.0-36.0); MEAN PLATELET VOLUME 9.5 fL (7.4-11.4); MONOCYTES # (AUTO) 0.9 10^3/uL (0.0-1.0); MONOCYTES % (AUTO) 9.3 %; NEUTROPHILS # (AUTO) 5.3 10^3/uL (1.5-6.6); NEUTROPHILS % (AUTO) 55.2 %; PLT - PLATELET COUNT 241 10^3/uL (130-450); RED BLOOD COUNT 4.63 10^6/uL (4.70-6.10); RED CELL DISTRIBUTION WIDTH 13.9 % (12.0-15.0); WHITE BLOOD COUNT 9.6 x10^3/uL (4.8-10.8)
--- NOTE | 2020-10-16 18:48 | CT Report ---
PROCEDURE: HEAD WO INDICATIONS: syncope, headaches TECHNIQUE: Noncontrast 4.5 mm thick angled axial sections acquired from the foramen magnum to the vertex. For r adiation dose reduction, the following was used: automated exposure control, adjustment of mA and/or kV according to patient size. COMPARISON: 08/09/[address] FINDINGS: Image quality: Excellent. CSF spaces: Basal cisterns are patent. No extra-axial fluid collections. Ventricles are normal in size and shape. Brain: No midline shift. No intracranial masses or hemorrhage. Al-white matter interface is norm al. Skull and face: Calvarium and visualized facial bones are intact, without suspicious lesions. Sinuses: Visualized sinuses and mastoids are clear. IMPRESSION: No acute intracranial abnormality. Reviewed by: Risa Candelaria MD on 10/16/2020 6:46 PM PDT Approved by: Risa Candelaria MD on 10/16/2020 6:46 PM PDT Station ID: [id number]
[2020-10-16 18:53] LABS: ALBUMIN 4.4 g/dL (3.2-5.5); ALBUMIN/GLOBULIN RATIO 1.5 (1.0-2.2); BILIRUBIN,TOTAL 0.8 mg/dL (0.2-1.0); CALCIUM 9.1 mg/dL (8.5-10.3); POTASSIUM 4.7 mmol/L (3.5-5.0); TOTAL PROTEIN 7.4 g/dL (6.7-8.2)
[2020-10-16 20:04] VITALS: BP 154/84
--- NOTE | 2020-10-16 20:09 | Ultrasound Report ---
PROCEDURE: Retroperitoneal Limited INDICATIONS: AAA TECHNIQUE: Real-time scanning was performed of the retroperitoneal organs, with image documentation. COMPARISON: 02/02/2020 ultrasound examination. FINDINGS: An infrarenal abdominal aortic aneurysm measuring 41 mm x 43 mm is present. Right common iliac artery is dilated at 13 mm. Left common iliac artery is dilated at 13 mm. IMPRESSION: Abdominal aortic aneurysm. Reviewed by: Risa Candelaria MD on 10/16/2020 8:07 PM PDT Approved by: Risa Candelaria MD on 10/16/2020 8:07 PM PDT Station ID: [id number]
== END 2020-10-16 20:02 | disposition home or self-care (01) ==
LOC: ED 17:13
DX: R55 Syncope and collapse (principal); R00.8 Other abnormalities of heart beat; I71.4 Abdominal aortic aneurysm, without rupture; I10 Essential (primary) hypertension; E11.9 Type 2 diabetes mellitus without complications; F17.200 Nicotine dependence, unspecified, uncomplicated
CPT/HCPCS: 36415; 80053; 83690; 84484; 85025; 93005; 99284

== ENCOUNTER 2021-04-17 08:02 | Outpatient (CLI) | payer OTHER ==
[2021-04-17 15:43] LABS: BASOPHILS # (AUTO) 0.1 10^3/uL (0.0-0.1); BASOPHILS % (AUTO) 1.1 %; EOSINOPHILS # (AUTO) 0.4 10^3/uL (0.0-0.7); EOSINOPHILS % (AUTO) 5.2 %; HCT - HEMATOCRIT 44.9 % (42.0-52.0); HGB - HEMOGLOBIN 14.1 g/dL (14.0-18.0); LYMPHOCYTES # (AUTO) 2.6 10^3/uL (1.5-3.5); LYMPHOCYTES % (AUTO) 35.8 %; MEAN CORPUSCULAR HEMOGLOBIN 30.2 pg (27.0-31.0); MEAN CORPUSCULAR HGB CONC 31.4 g/dL (32.0-36.0); MEAN CORPUSCULAR VOLUME 96.1 fL (80.0-94.0); MEAN PLATELET VOLUME 10.1 fL (7.4-11.4); MONOCYTES # (AUTO) 0.8 10^3/uL (0.0-1.0); MONOCYTES % (AUTO) 11.6 %; NEUTROPHILS # (AUTO) 3.3 10^3/uL (1.5-6.6); PLT - PLATELET COUNT 253 10^3/uL (130-450); RED BLOOD COUNT 4.67 10^6/uL (4.70-6.10); WHITE BLOOD COUNT 7.2 x10^3/uL (4.8-10.8)
[2021-04-17 16:04] LABS: ALBUMIN 4.1 g/dL (3.2-5.5); ALBUMIN/GLOBULIN RATIO 1.5 (1.0-2.2); ALKALINE PHOSPHATASE 72 IU/L (42-121); ALT ALANINE AMINOTRANSFERASE 16 IU/L (10-60); AST ASPARTATE AMINOTRANSFERASE 15 IU/L (10-42); BILIRUBIN,TOTAL 0.7 mg/dL (0.2-1.0); BUN - BLOOD UREA NITROGEN 34 mg/dL (6-20); CARBON DIOXIDE - CO2 27 mmol/L (21-32); CHLORIDE 101 mmol/L (101-111); CHOL/HDL RATIO 4.3 (<5.0); CHOLESTEROL 175 mg/dL; CREATININE 1.1 mg/dL (0.6-1.2); GFR - MDRD 64 (>89); GLUCOSE 94 mg/dL (70-100); HDL CHOLESTEROL 41 mg/dL; LDL CHOLESTEROL,CALCULATED 117 mg/dL; LDL/HDL RATIO 2.9 (<3.6); POTASSIUM 4.7 mmol/L (3.5-5.0); SODIUM 136 mmol/L (135-145); TOTAL PROTEIN 6.9 g/dL (6.7-8.2); TRIGLYCERIDES 84 mg/dL; VLDL CHOLESTEROL 17 mg/dL
[2021-04-17 16:15] LABS: THYROID STIMULATING HORMONE 4.05 uIU/mL (0.34-5.60)
[2021-04-17 19:49] LABS: ESTIMATED AVERAGE GLUCOSE 126 mg/dL (70-100)
== END 2021-04-17 08:03 | disposition home or self-care (01) ==
LOC: LAB.S 08:02
PROVIDERS: ATTEND Nurse Practitioner Family
DX: G47.00 Insomnia, unspecified (principal); E78.5 Hyperlipidemia, unspecified; E11.9 Type 2 diabetes mellitus without complications
CPT/HCPCS: 36415; 80053; 80061; 83036; 83721; 84443; 85025

== ENCOUNTER 2021-04-19 08:34 | Outpatient (CLI) | payer OTHER ==
--- NOTE | 2021-04-19 15:37 | Ultrasound Report ---
PROCEDURE: Retroperitoneal Limited INDICATIONS: AAA TECHNIQUE: Real time scanning was performed of the aorta and iliac arteries, with image documentatio n. COMPARISON: 10/16/2020, 02/02/2020, 09/30/2017, 08/27/2016 FINDINGS: Aorta: Proximal aortic diameter measures 2.7 cm. Mid-aorta measures 2.2 cm. There is a distal abdominal aortic fusiform aneurysm that measures 4.2 cm AP, with a patent lumen melo t measures 2.5 cm. Transversely, this measures 4.4 cm. There is a craniocaudal extent of 6.2 cm. Iliac arteries: Right common iliac artery measures 1.2 cm. Left common iliac artery measures 1.2 cm . IMPRESSION: Fusiform distal abdominal aortic aneurysm, measuring 4.2 cm AP. This is similar to the prior ultrasou nd. Reviewed by: Rusty Ewing MD on 04/19/2021 2:35 PM AKST Approved by: Rusty Ewing MD on 04/19/2021 2:35 PM [facility] [place] Station ID: [id number]
== END 2021-04-19 08:35 | disposition home or self-care (01) ==
LOC: DI 08:34
PROVIDERS: ATTEND Registered Nurse
DX: I71.4 Abdominal aortic aneurysm, without rupture (principal)

== ENCOUNTER 2021-06-26 08:00 | Outpatient (CLI) | payer OTHER | END 2021-06-26 23:59 | disposition home or self-care (01) | LOC: LAB.S 08:00 | PROVIDERS: ATTEND Physician Assistant | DX: J01.00 Acute maxillary sinusitis, unspecified (principal); Z20.822 Contact with and (suspected) exposure to COVID-19 ==